=== PATIENT | female | born 1960 | race Caucasian/White ===

== ENCOUNTER 2016-09-03 09:05 | Observation (INO) | payer BC ==
[~2016-09-03] VITALS: Ht 170.2 cm; Wt 87.5 kg
[~2016-09-03 09:05] MED LIST: ALEVE220 M1 PO
[2016-09-03 09:41] LABS: EOSINOPHIL (%) 2.3 % (0-5); EOSINOPHIL COUNT 0.1 K/uL (0-0.3); HEMATOCRIT 43.4 % (36.0-46.0); IMMATURE GRANULOCYTE (%) 0.2 % (0.0-0.7); INSTRUMENT ABS NEUTROPHIL CT 3.1 K/uL; LYMPHOCYTE COUNT 1.7 K/uL (1.0-2.8); MCHC 32.5 G/DL (30.0-36.0); MCV 86.3 FL (83-99); MEAN PLAT.VOLUME 10.2 uM^3 (9.5-12.4); MONOCYTE (%) 5.4 % (3-12); MONOCYTE COUNT 0.3 K/uL (0-0.8); NEUTROPHIL (%) 59.6 % (45-76); NEUTROPHIL COUNT 3.1 K/uL (1.8-6.4); PLATELET COUNT 204 K/uL (156-360); RBC DIS.WIDTH-CV 12.7 % (11.8-14.6); RED BLOOD COUNT 5.03 M/uL (3.80-5.20); WHITE BLOOD COUNT 5.2 K/uL (4.1-10.2)
[2016-09-03 09:54] LABS: CHLORIDE 111 mEq/L (99-109); POTASSIUM 4.2 mEq/L (3.7-5.4); SODIUM 144 mEq/L (136-147)
[2016-09-03 09:55] LABS: MAGNESIUM 2.2 mg/dL (1.3-2.7)
[2016-09-03 09:57] LABS: GLUCOSE 65 mg/dL (70-99)
[2016-09-03 09:58] LABS: ANION GAP 8 MEQ/L (2-14)
[2016-09-03 09:59] LABS: TOTAL BILIRUBIN 0.4 mg/dL (0.0-1.0)
[2016-09-03 10:00] LABS: GFR ESTIMATE (CALCULATED) > 59 mL/min/
[2016-09-03 10:01] LABS: UREA NITROGEN (BUN) 20 mg/dL (9-23)
[2016-09-03 10:02] LABS: ALKALINE PHOSPHATASE 70 IU/L (3-129)
[2016-09-03 10:06] LABS: TROP-I INTERPRETATION NEGATIVE; TROPONIN-I 0.02 ng/mL (0.0-0.30)
[2016-09-03] MEDS ORDERED: ALEVE220 MG PO (10:40)
[2016-09-03 10:50] LABS: POINT-OF-CARE METER ID UU14100415
[2016-09-03 13:26] VITALS: BP 110/75
[2016-09-03 13:44] LABS: TROP-I INTERPRETATION NEGATIVE; TROPONIN-I 0.12 ng/mL (0.0-0.30)
[2016-09-03 15:41] VITALS: BP 122/59
[2016-09-03 18:29] LABS: TROP-I INTERPRETATION NEGATIVE; TROPONIN-I 0.22 ng/mL (0.0-0.30)
[2016-09-03 19:41] VITALS: BP 110/64
[2016-09-03 23:30] VITALS: BP 102/57
[2016-09-04] VITALS: BP 112/85
[2016-09-04 04:37] VITALS: BP 106/66
[2016-09-04 07:06] LABS: INTER. NORMALIZED RATIO 1.1; PROTHROMBIN TIME 10.9 (9.2-11.2); PTT 30.3 (25-32)
[2016-09-04 07:20] LABS: HDL CHOLESTEROL 35 MG/DL (Desirable>=50); LDL CHOLESTEROL 105 mg/dL (Desirable<100); NON-HDL CHOLESTEROL 122 mg/dL (Desirable<160); TOTAL CHOLESTEROL 157 mg/dL (Desirable<200); TRIGLYCERIDES 85 MG/DL (Normal: <150)
[2016-09-04 07:22] VITALS: BP 135/61
[2016-09-04 11:20] VITALS: BP 138/73
[2016-09-04] MEDS ORDERED: XARELTO20 MG PO (15:49)
== END 2016-09-04 16:24 | disposition home or self-care (01) ==
LOC: EME 09:05 → EDOF 10:43 → 4EAST 10:43
PROVIDERS: Emergency Medicine; Hospitalist
PROC: 5A2204Z Restoration of Cardiac Rhythm, Single (ICD-10-PCS; principal; 2016-09-03)
DX: I48.91 Unspecified atrial fibrillation (principal); F17.200 Nicotine dependence, unspecified, uncomplicated
CPT/HCPCS: 71010; 80053; 80061; 82948; 83735; 84443; 84484; 85025; 85610; 85730; 93005; 93306; 99281; 99285; G0378; J1650; J7030; J7050